=== PATIENT | male | born 1960 | race Caucasian/White ===

== ENCOUNTER 2018-04-14 20:10 | Emergency (ER) | payer MEDICARE ==
[2018-04-14] MEDS ORDERED: RINGERS SOLUTION,LACTATED 1,000 ML IV ONE (20:50)
[2018-04-14 21:11] LABS: ABSOLUTE LYMPHOCYTES (AUTO) 1.3 10^3/uL (0.5-4.7); ABSOLUTE MONOCYTES (AUTO) 0.9 10^3/uL (0.1-1.4); ABSOLUTE NEUT (AUTO) 11.9 10^3/uL (1.7-8.2); BASOPHILS % (AUTO) 0.3 % (0-2); EOSINOPHILS % (AUTO) 0.2 % (0-6); HEMATOCRIT 52.9 % (37.9-51.0); HEMOGLOBIN 18.3 g/dL (13.5-17.0); LYMPHOCYTES % (AUTO) 9.1 % (13-45); MEAN CORPUSCULAR HGB CONC 34.7 g/dL (32.0-36.0); MEAN CORPUSCULAR VOLUME 92 fl (80-97); MONOCYTES % (AUTO) 6.5 % (3-13); PLATELET COUNT 229 10^3/uL (150-450); RED BLOOD COUNT 5.73 10^6/uL (4.35-5.55); RED CELL DISTRIBUTION WIDTH 13.9 % (11.5-14.0); SEGMENTED NEUTROPHILS % (AUTO) 83.9 % (42-78); TOTAL CELLS COUNTED % (AUTO) 100 %; WHITE BLOOD COUNT 14.2 10^3/uL (4.0-10.5)
[2018-04-14 21:13] VITALS: BP 116/75
[2018-04-14 21:41] LABS: ALANINE AMINOTRANSFERASE 31 U/L (21-72); ALBUMIN 3.4 g/dL (3.5-5.0); ALKALINE PHOSPHATASE 56 U/L (38-126); ANION GAP 13 (5-19); ASPARTATE AMINO TRANSFERASE 22 U/L (17-59); BILIRUBIN,DIRECT 0.3 mg/dL (0.0-0.4); BILIRUBIN,TOTAL 1.3 mg/dL (0.2-1.3); BLOOD UREA NITROGEN 20 mg/dL (7-20); CARBON DIOXIDE 22 mmol/L (22-30); CHLORIDE 106 mmol/L (98-107); CREATINE KINASE 230 U/L (55-170); GLUCOSE 163 mg/dL (75-110); LIPASE 84.5 U/L (23-300); POTASSIUM 3.8 mmol/L (3.6-5.0); SODIUM 140.5 mmol/L (137-145); TOTAL PROTEIN 5.6 g/dL (6.3-8.2)
[2018-04-14 21:54] LABS: CREATINE KINASE MB 2.48 ng/mL (<4.55)
[2018-04-14 21:55] LABS: TROPONIN I < 0.012 ng/mL
--- NOTE | 2018-04-14 22:30 | RADIOLOGY REPORT (SQ) ---
EXAM DESCRIPTION: CT ABD/PELVIS WITH IV ONLY COMPLETED DATE/TIME: 04/14/2018 10:13 pm REASON FOR STUDY: epigastric pain COMPARISON: None. TECHNIQUE: CT scan of the abdomen and pelvis performed using helical scanning technique with dynamic intravenous contrast injection. No oral contrast. Images reviewed with lung, soft tissue, and bone windows. Reconstructed coronal and sagittal MPR images reviewed. Delayed images for evaluation of the urinary system also acquired. All images stored on PACS. All CT scanners at this facility use dose modulation, iterative reconstruction, and/or weight based d osing when appropriate to reduce radiation dose to as low as reasonably achievable (ALARA). [facility]: Dose Right [facility]: CareDose [facility]: Dose Right [facility]: Teradose 4D [facility]: Stealz CONTRAST TYPE AND DOSE: contrast/concentration: Isovue 370.00 mg/ml; Total Contrast Delivered: 100.0 ml; Total Saline Delivered: 45.0 ml RENAL FUNCTION: BUN 20 creatinine 1.06 RADIATION DOSE: CT Rad equipment meets quality standard of care and radiation dose reduction techniq ues were employed. CTDIvol: 6.9 mGy. DLP: 705 mGy-cm.. LIMITATIONS: None. FINDINGS: LOWER CHEST: No significant findings. No nodules or infiltrates. LIVER: Normal size. No masses. No dilated ducts. SPLEEN: Normal size. No focal lesions. PANCREAS: No masses. No significant calcifications. No adjacent inflammation or peripancreatic fluid collections. Pancreatic duct not dilated. GALLBLADDER: No identified stones by CT criteria. No inflammatory changes to suggest cholecystitis. ADRENAL GLANDS: No significant masses or asymmetry. RIGHT KIDNEY AND URETER: No solid masses. No significant calcifications. No hydronephrosis or hyd roureter. LEFT KIDNEY AND URETER: No solid masses. No significant calcifications. No hydronephrosis or hydr oureter. AORTA AND VESSELS: No aneurysm. No dissection. Renal arteries, SMA, celiac without stenosis. RETROPERITONEUM: No retroperitoneal adenopathy, hemorrhage or masses. BOWEL AND PERITONEAL CAVITY: Minimal diverticulosis coli. No acute inflammatory changes. APPENDIX: Normal. PELVIS: The prostate gland is prominent and there is nodular protrusion of the prostate into the base of the bladder. ABDOMINAL WALL: No masses. No hernias. BONES: No significant or acute findings. OTHER: No other significant finding. IMPRESSION: 1. Minimal diverticulosis coli. 2. There is nodular protrusion of the prostate gland into the base of the bladder. TECHNICAL DOCUMENTATION: JOB ID: [id number] Quality ID # [id number]: Final reports with documentation of one or more dose reduction techniques (e.g., Au tomated exposure control, adjustment of the mA and/or kV according to patient size, use of iterative reconstruction technique) 2010 [employer]- All Rights Reserved Reading location - IP/workstation name: [email or web address]
--- NOTE | 2018-04-14 22:40 | EKG REPORT ---
SEVERITY:- ABNORMAL ECG - SINUS RHYTHM NONSPECIFIC T ABNORMALITIES, INFERIOR LEADS : Confirmed by: Antoine Otto 14-Apr-2018 22:40:41
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
== END 2018-04-14 23:00 | disposition home or self-care (01) ==
LOC: ER 20:10
DX: R55 Syncope and collapse (principal); E86.0 Dehydration; R10.13 Epigastric pain; R07.9 Chest pain, unspecified; R11.0 Nausea; F17.210 Nicotine dependence, cigarettes, uncomplicated; E78.00 Pure hypercholesterolemia, unspecified; I10 Essential (primary) hypertension; I25.2 Old myocardial infarction
CPT/HCPCS: 93005; 99285; 96360; 36415; 82553; 82550; 83690; 85025; 80053; 84484; 74177; 93010; J7120